=== PATIENT | female | born 1995 | race African-American/Black ===

== ENCOUNTER 2017-03-04 11:08 | Inpatient (IN) | payer OTHER ==
[~2017-03-04] VITALS: Ht 154.9 cm; Wt 87.3 kg
[~2017-03-04 11:08] MED LIST: ACETAMINOPHEN650 M7 PO; ALLERGY MED25 MG PO; AMITRIPTYLINE H25 MG PO; AUGMENTIN875 MG PO; CHEWABLE-VITE1 EACH PO; CLONIDINE HCL0.2 MG PO; CONCERTA27 MG PO; DEPAKOTE ER500 MG PO; DEPAKOTE250 MG PO; DOCUSATE SODIU100 M1 PO; ELAVIL25 MG PO; MELATONIN3 MG PO; MELATONIN5 M2 PO; MIRALAX17 GM PO; PRILOSEC OTC20 MG PO; RANITIDINE HCL150 M1 PO; RISPERDAL0.5 MG PO; RISPERDAL1 MG PO; RITALIN10 MG PO; SYNTHROID75 MCG PO; TRI-PREVIFEM1 EACH PO; TRI-SPRINTEC1 EACH PO; VENTOLIN HFA18 GM IH
[2017-03-04 11:53] LABS: ADD MIUA? YES; BILIRUBIN NEGATIVE; BLOOD NEGATIVE; COLOR YELLOW ((YELLOW)); GLUCOSE (STRIP) NEGATIVE; KETONES NEGATIVE; LEUKOCYTES MODERATE; NITRITE NEGATIVE; PROTEIN (STRIP) NEGATIVE; SPECIFIC GRAVITY 1.019 (1.000-1.030)
[2017-03-04 11:58] LABS: BACTERIA RARE /HPF; CALCIUM OXALATE CRYSTALS 3+ /HPF; EPITHELIAL CELLS 1+ /HPF; MUCUS 2+ /LPF; RED BLOOD CELLS 0-5 /HPF (0-5); UCUL ADDED? NO
[2017-03-04 12:17] LABS: AMPHETAMINE NEGATIVE (500 ng/mL); BARBITURATES NEGATIVE (200 ng/mL); BENZODIAZEPINES NEGATIVE (150 ng/mL); COCAINE NEGATIVE (150 ng/mL); INTERNAL CONTROLS VALID? YES; METHADONE NEGATIVE (200 ng/mL); METHAMPHETAMINE NEGATIVE (500 ng/mL); OPIATES (MORPHINE) NEGATIVE (100 ng/mL); OXYCODONE NEGATIVE (100 ng/mL); PHENCYCLIDINE NEGATIVE (25 ng/mL); PROPOXYPHENE NEGATIVE (300 ng/mL); THC CANNABINOIDS NEGATIVE (50 ng/mL); TRICYCLIC ANTIDEPRESSANTS NEGATIVE (300 ng/mL)
[2017-03-04 12:46] LABS: HEMATOCRIT 41.5 % (36.0-46.0); MCH 26.1 PG (29.0-34.0); MCHC 31.6 G/DL (30.0-36.0); MCV 82.8 FL (83-99); MEAN PLAT.VOLUME 10.3 uM^3 (9.5-12.4); PLATELET COUNT 376 K/uL (156-360); RBC DIS.WIDTH-CV 14.6 % (11.8-14.6); RBC DIS.WIDTH-SD 43.6 % (39-53); RED BLOOD COUNT 5.01 M/uL (3.80-5.20); WHITE BLOOD COUNT 9.6 K/uL (4.1-10.2)
[2017-03-04 12:56] LABS: CHLORIDE 111 mEq/L (99-109); POTASSIUM 3.9 mEq/L (3.7-5.4); SODIUM 141 mEq/L (136-147)
[2017-03-04 12:58] LABS: GLUCOSE 105 mg/dL (70-99)
[2017-03-04 12:59] LABS: ANION GAP 9 MEQ/L (2-14)
[2017-03-04 13:02] LABS: GFR ESTIMATE (CALCULATED) > 59 mL/min/; UREA NITROGEN (BUN) 10 mg/dL (9-23)
[2017-03-04 17:46] VITALS: BP 132/79
[2017-03-04] MEDS ORDERED: ZYRTEC10 M2 PO (19:19)
[2017-03-04] MEDS ORDERED: RITALIN LA20 MG PO (19:25)
[2017-03-04] MEDS ORDERED: COLACE100 MG PO (19:27)
[2017-03-04] MEDS ORDERED: SAPHRIS10 MG SL (19:28)
[2017-03-04] MEDS ORDERED: FIBERCON625 MG PO (19:29)
[2017-03-04] MEDS ORDERED: FLONASE16 G1 BOTH NARES (19:31)
[2017-03-04] MEDS ORDERED: SYNTHROID50 MCG PO (19:32)
[2017-03-04] MEDS ORDERED: VITAMIN D31000 UNIT PO (19:34)
[2017-03-04] MEDS ORDERED: GUMMI BEAR MUL1 EACH PO (19:34)
[2017-03-04] MEDS ORDERED: GLUCOPHAGE500 MG PO (19:35)
[2017-03-04] MEDS ORDERED: TOPAMAX50 MG PO (19:36)
[2017-03-04] MEDS ORDERED: PERIACTIN4 MG PO (20:07)
[2017-03-04] MEDS ORDERED: CLONIDINE HCL0.1 MG PO (20:09)
[2017-03-05 07:31] VITALS: BP 108/68
[2017-03-05 12:26] LABS: BASOPHIL COUNT 0.1 K/uL (0-0.1); EOSINOPHIL (%) 1.5 % (0-5); EOSINOPHIL COUNT 0.2 K/uL (0-0.3); HEMATOCRIT 41.1 % (36.0-46.0); IMMATURE GRANULOCYTE (%) 0.3 % (0.0-0.7); INSTRUMENT ABS NEUTROPHIL CT 5.8 K/uL; LYMPHOCYTE COUNT 3.5 K/uL (1.0-2.8); MCHC 32.4 G/DL (30.0-36.0); MCV 83.4 FL (83-99); MEAN PLAT.VOLUME 10.4 uM^3 (9.5-12.4); MONOCYTE (%) 6.4 % (3-12); MONOCYTE COUNT 0.7 K/uL (0-0.8); NEUTROPHIL COUNT 5.8 K/uL (1.8-6.4); PLATELET COUNT 396 K/uL (156-360); RBC DIS.WIDTH-CV 14.5 % (11.8-14.6); RBC DIS.WIDTH-SD 44.4 % (39-53); RED BLOOD COUNT 4.93 M/uL (3.80-5.20); WHITE BLOOD COUNT 10.1 K/uL (4.1-10.2)
[2017-03-05 15:32] VITALS: BP 127/57
[2017-03-06 08:13] VITALS: BP 124/74
[2017-03-06 15:29] VITALS: BP 120/49
[2017-03-07 07:28] VITALS: BP 109/59
[2017-03-07 15:25] VITALS: BP 92/54
[2017-03-08 07:52] VITALS: BP 125/63
[2017-03-08 16:15] VITALS: BP 105/66
[2017-03-09 07:32] VITALS: BP 101/51
[2017-03-09 15:20] VITALS: BP 130/75
[2017-03-10 07:59] VITALS: BP 109/62
[2017-03-10] MEDS ORDERED: CLOZARIL25 MG PO (09:53)
== END 2017-03-10 15:22 | disposition home or self-care (01) | DRG 885 ==
LOC: EME 11:08 → 1WEST 16:24 → EDOF 16:24 → 1WEST 17:35
PROVIDERS: Psychiatry & Neurology Psychiatry
DX: F20.9 Schizophrenia, unspecified (principal); F31.9 Bipolar disorder, unspecified; F42.9 Obsessive-compulsive disorder, unspecified; F70 Mild intellectual disabilities; E03.9 Hypothyroidism, unspecified; E11.9 Type 2 diabetes mellitus without complications; F17.210 Nicotine dependence, cigarettes, uncomplicated; J45.909 Unspecified asthma, uncomplicated; F22 Delusional disorders; F90.9 Attention-deficit hyperactivity disorder, unspecified type; Z79.84 Long term (current) use of oral hypoglycemic drugs
CPT/HCPCS: 80048; 80164; 81003; 82607; 82746; 84443; 85025; 85027; 90839; 97150 GO; 97165 GO; 99281; 99283

== ENCOUNTER 2017-08-10 23:06 | Emergency (ER) | payer OTHER ==
[~2017-08-10] VITALS: Ht 157.5 cm; Wt 94.7 kg
[~2017-08-10 23:06] MED LIST changes: +CLONIDINE HCL0.1 MG PO; +CLOZARIL25 MG PO; +COLACE100 MG PO; +FIBERCON625 MG PO; +FLONASE16 G1 BOTH NARES; +GLUCOPHAGE500 MG PO; +GUMMI BEAR MUL1 EACH PO; +PERIACTIN4 MG PO; +RITALIN LA20 MG PO; +SAPHRIS10 MG SL; +SYNTHROID50 MCG PO; +TOPAMAX50 MG PO; +VITAMIN D31000 UNIT PO; +ZYRTEC10 M2 PO
[2017-08-10 23:58] LABS: HEMATOCRIT 35.9 % (36.0-46.0); MCH 27.7 PG (29.0-34.0); MCHC 33.4 G/DL (30.0-36.0); MCV 82.9 FL (83-99); PLATELET COUNT 354 K/uL (156-360); RBC DIS.WIDTH-CV 13.3 % (11.8-14.6); RBC DIS.WIDTH-SD 40.1 % (39-53); RED BLOOD COUNT 4.33 M/uL (3.80-5.20); WHITE BLOOD COUNT 12.7 K/uL (4.1-10.2)
[2017-08-11 00:02] LABS: AMPHETAMINE NEGATIVE (500 ng/mL); BENZODIAZEPINES NEGATIVE (150 ng/mL); COCAINE NEGATIVE (150 ng/mL); METHAMPHETAMINE NEGATIVE (500 ng/mL); OPIATES (MORPHINE) NEGATIVE (100 ng/mL); PHENCYCLIDINE NEGATIVE (25 ng/mL); THC CANNABINOIDS NEGATIVE (50 ng/mL)
[2017-08-11 00:03] LABS: BARBITURATES NEGATIVE (200 ng/mL); INTERNAL CONTROLS VALID? YES; METHADONE NEGATIVE (200 ng/mL); OXYCODONE NEGATIVE (100 ng/mL); PROPOXYPHENE NEGATIVE (300 ng/mL); TRICYCLIC ANTIDEPRESSANTS PRESUMPTIVE POSITIVE (300 ng/mL)
[2017-08-11 00:11] LABS: CHLORIDE 110 mEq/L (99-109); POTASSIUM 3.8 mEq/L (3.7-5.4); SODIUM 141 mEq/L (136-147)
[2017-08-11 00:13] LABS: GLUCOSE 113 mg/dL (70-99)
[2017-08-11 00:14] LABS: ANION GAP 10 MEQ/L (2-14)
[2017-08-11 00:16] LABS: SERUM ETHYL ALCOHOL < 10 mg/dL
[2017-08-11 00:17] LABS: GFR ESTIMATE (CALCULATED) > 59 mL/min/
[2017-08-11 00:18] LABS: UREA NITROGEN (BUN) 10 mg/dL (9-23)
[2017-08-11 00:26] LABS: QUANTITATIVE HCG < 4.0 MIU/ML
[2017-08-11 01:27] VITALS: BP 123/82
== END 2017-08-11 01:33 ==
LOC: EME 23:06
PROVIDERS: Emergency Medicine
DX: F32.9 Major depressive disorder, single episode, unspecified (principal); F20.9 Schizophrenia, unspecified; F70 Mild intellectual disabilities; F90.9 Attention-deficit hyperactivity disorder, unspecified type; Z04.6 Encounter for general psychiatric examination, requested by authority; F42.9 Obsessive-compulsive disorder, unspecified; J45.909 Unspecified asthma, uncomplicated
CPT/HCPCS: 80048; 84702; 85027; 90837; 93005; 99281; 99285; G0480

== ENCOUNTER 2017-08-28 19:02 | Emergency (ER) | payer OTHER ==
[~2017-08-28] VITALS: Ht 157.5 cm; Wt 61.2 kg
[2017-08-28 19:50] LABS: HEMATOCRIT 37.9 % (36.0-46.0); MCH 27.9 PG (29.0-34.0); MEAN PLAT.VOLUME 9.7 uM^3 (9.5-12.4); PLATELET COUNT 367 K/uL (156-360); RBC DIS.WIDTH-CV 13.5 % (11.8-14.6); RBC DIS.WIDTH-SD 40.2 % (39-53); RED BLOOD COUNT 4.62 M/uL (3.80-5.20); WHITE BLOOD COUNT 12.3 K/uL (4.1-10.2)
[2017-08-28 20:02] LABS: CHLORIDE 105 mEq/L (99-109); POTASSIUM 3.3 mEq/L (3.7-5.4); SODIUM 140 mEq/L (136-147)
[2017-08-28 20:04] LABS: GLUCOSE 113 mg/dL (70-99)
[2017-08-28 20:05] LABS: ANION GAP 10 MEQ/L (2-14)
[2017-08-28 20:07] LABS: SERUM ETHYL ALCOHOL < 10 mg/dL
[2017-08-28 20:08] LABS: GFR ESTIMATE (CALCULATED) > 59 mL/min/
[2017-08-28 20:10] LABS: UREA NITROGEN (BUN) 6 mg/dL (9-23)
[2017-08-28 20:11] LABS: SALICYLATE < 5.0 MG/DL (15-30)
[2017-08-28 20:21] LABS: ADD MEDTOX COMMENT Y; AMPHETAMINE PRESUMPTIVE POSITIVE (500 ng/mL); BARBITURATES NEGATIVE (200 ng/mL); BENZODIAZEPINES NEGATIVE (150 ng/mL); COCAINE NEGATIVE (150 ng/mL); INTERNAL CONTROLS VALID? YES; METHADONE NEGATIVE (200 ng/mL); METHAMPHETAMINE NEGATIVE (500 ng/mL); OPIATES (MORPHINE) NEGATIVE (100 ng/mL); OXYCODONE NEGATIVE (100 ng/mL); PHENCYCLIDINE NEGATIVE (25 ng/mL); PROPOXYPHENE NEGATIVE (300 ng/mL); THC CANNABINOIDS NEGATIVE (50 ng/mL); TRICYCLIC ANTIDEPRESSANTS NEGATIVE (300 ng/mL)
[2017-08-28 23:35] VITALS: BP 126/78
[2017-08-29 14:24] LABS: CHLAMYDIA TRACHOMATIS NEGATIVE; NEISSERIA GONORRHOEAE NEGATIVE
== END 2017-08-28 23:36 | disposition home or self-care (01) ==
LOC: EME 19:02
PROVIDERS: Emergency Medicine
DX: F31.9 Bipolar disorder, unspecified (principal); F20.9 Schizophrenia, unspecified; F70 Mild intellectual disabilities; F90.9 Attention-deficit hyperactivity disorder, unspecified type; R07.9 Chest pain, unspecified; R05 Cough; E03.9 Hypothyroidism, unspecified; Z79.84 Long term (current) use of oral hypoglycemic drugs
CPT/HCPCS: 80048; 84999; 85027; 87491; 87591; 90837; 99281; 99284; G0480

== ENCOUNTER 2018-05-10 20:21 | Emergency (ER) | payer OTHER ==
[~2018-05-10] VITALS: Ht 157.5 cm; Wt 88.4 kg
[2018-05-10] MEDS ORDERED: CLOZARIL25 MG PO ×2 (21:06→21:07)
[2018-05-10] MEDS ORDERED: CATAPRES0.3 MG PO (21:07)
[2018-05-10] MEDS ORDERED: STRATTERA60 MG PO (21:08)
[2018-05-10] MEDS ORDERED: ROBINUL1 MG PO (21:09)
[2018-05-10] MEDS ORDERED: TOPAMAX25 MG PO (21:10)
[2018-05-10 21:41] LABS: HEMATOCRIT 39.1 % (36.0-46.0); MCH 27.9 PG (29.0-34.0); MCHC 33.2 G/DL (30.0-36.0); MCV 83.9 FL (83-99); PLATELET COUNT 338 K/uL (156-360); RBC DIS.WIDTH-CV 12.9 % (11.8-14.6); RBC DIS.WIDTH-SD 39.4 % (39-53); RED BLOOD COUNT 4.66 M/uL (3.80-5.20); WHITE BLOOD COUNT 10.8 K/uL (4.1-10.2)
[2018-05-10 21:42] LABS: APPEARANCE SL.HAZY ((CLEAR)); BILIRUBIN NEGATIVE; BLOOD NEGATIVE; COLOR YELLOW ((YELLOW)); GLUCOSE (STRIP) >=500; KETONES 5; LEUKOCYTES SMALL; NITRITE NEGATIVE; PROTEIN (STRIP) 30; SPECIFIC GRAVITY 1.029 (1.000-1.030)
[2018-05-10 21:52] LABS: CHLORIDE 106 mEq/L (99-109); POTASSIUM 4.4 mEq/L (3.7-5.4); SODIUM 140 mEq/L (136-147)
[2018-05-10 21:53] LABS: BACTERIA RARE /HPF; EPITHELIAL CELLS 2+ /HPF; MUCUS TRACE /LPF; RED BLOOD CELLS 0-5 /HPF (0-5)
[2018-05-10 21:54] LABS: GLUCOSE 198 mg/dL (70-99)
[2018-05-10 21:58] LABS: CREATININE 0.7 mg/dL (0.6-1.3); GFR ESTIMATE (CALCULATED) > 59 mL/min/; UREA NITROGEN (BUN) 9 mg/dL (9-23)
[2018-05-10 22:05] LABS: AMPHETAMINE NEGATIVE (500 ng/mL); BARBITURATES NEGATIVE (200 ng/mL); BENZODIAZEPINES PRESUMPTIVE POSITIVE (150 ng/mL); BUPRENORPHINE NEGATIVE (10 ng/mL); COCAINE NEGATIVE (150 ng/mL); METHADONE NEGATIVE (200 ng/mL); METHAMPHETAMINE NEGATIVE (500 ng/mL); OPIATES (MORPHINE) NEGATIVE (100 ng/mL); OXYCODONE NEGATIVE (100 ng/mL); PHENCYCLIDINE NEGATIVE (25 ng/mL); PROPOXYPHENE NEGATIVE (300 ng/mL); THC CANNABINOIDS NEGATIVE (50 ng/mL); TRICYCLIC ANTIDEPRESSANTS PRESUMPTIVE POSITIVE (300 ng/mL)
[2018-05-10 22:08] LABS: QUANTITATIVE HCG < 4.0 MIU/ML
[2018-05-10 22:34] LABS: BENZODIAZEPINES, URINE SCREEN Negative (200 ng/mL)
[2018-05-11] VITALS: BP 132/75
== END 2018-05-11 00:01 | disposition home or self-care (01) ==
LOC: EME 20:21
PROVIDERS: Nurse Practitioner Family
DX: F32.9 Major depressive disorder, single episode, unspecified (principal); R73.9 Hyperglycemia, unspecified; F20.9 Schizophrenia, unspecified; F70 Mild intellectual disabilities; F90.9 Attention-deficit hyperactivity disorder, unspecified type; S50.812A Abrasion of left forearm, initial encounter; X83.8XXA Intentional self-harm by other specified means, initial encounter; Z91.5 Personal history of self-harm; Z04.6 Encounter for general psychiatric examination, requested by authority; Z79.84 Long term (current) use of oral hypoglycemic drugs; F42.9 Obsessive-compulsive disorder, unspecified; J45.909 Unspecified asthma, uncomplicated; F91.3 Oppositional defiant disorder
CPT/HCPCS: 80048; 81003; 84702; 84999; 85027; 90837; 99281; 99285